=== PATIENT | male | born 1940 | race Caucasian/White ===

== ENCOUNTER 2017-10-25 09:31 | Day surgery (SDC) | payer OTHER ==
[~2017-10-25] VITALS: Ht 172.7 cm; Wt 79.5 kg
[~2017-10-25 09:31] MED LIST: AMLO10 PO; ATOR40TA PO; Adult Low Dose81 MG PO; CHLO25B PO; GLIP10 PO; LISI5 PO; Lopressor 25 mg25 MG PO; METFORMIN HCL500 MG PO; NITR.4SL SL; OMEPRAZOLE MAGN20 MG PO; VITAMIN C500 M1 PO; VITAMIN D22000 UNIT PO
[2017-10-25] MEDS ORDERED: Isosorbide Mono30 MG PO (13:33)
== END 2017-10-25 16:15 | disposition home or self-care (01) ==
LOC: MHTC 09:31
PROC: B2111ZZ Fluoroscopy of Multiple Coronary Arteries using Low Osmolar Contrast (ICD-10-PCS; principal; 2017-10-25)
DX: I25.119 Atherosclerotic heart disease of native coronary artery with unspecified angina pectoris (principal); E11.9 Type 2 diabetes mellitus without complications; E78.5 Hyperlipidemia, unspecified; I45.10 Unspecified right bundle-branch block; I11.9 Hypertensive heart disease without heart failure; I73.9 Peripheral vascular disease, unspecified; I65.21 Occlusion and stenosis of right carotid artery; K21.9 Gastro-esophageal reflux disease without esophagitis; Z87.891 Personal history of nicotine dependence; Z79.899 Other long term (current) drug therapy; Z79.82 Long term (current) use of aspirin; Z79.84 Long term (current) use of oral hypoglycemic drugs
CPT/HCPCS: 93454; 99152; C1769; C1894; J1644; J2250; J3010; J7030; Q9967

== ENCOUNTER 2022-02-08 05:42 | Observation (INO) | payer OTHER ==
[~2022-02-08] VITALS: Ht 172.7 cm; Wt 67.6 kg
[~2022-02-08 05:42] MED LIST changes: +ASCO500 PO; -Adult Low Dose81 MG PO; +Aspir 8181 MG PO; +Isosorbide Mono30 MG PO; -VITAMIN C500 M1 PO
[2022-02-08] MEDS ORDERED: RANO500T PO (06:33)
[2022-02-08] MEDS ORDERED: THERA-D2000 UNIT PO (06:33)
[2022-02-08] MEDS ORDERED: JARDIANCE25 MG PO (06:34)
[2022-02-08] MEDS ORDERED: LISI20 PO (06:35)
[2022-02-08] MEDS ORDERED: Vitamin B-12250 MCG PO (06:39)
[2022-02-08] MEDS ORDERED: FISH OIL 1,2001 EAC7 PO (06:40)
--- NOTE | 2022-02-08 10:39 | NUR ---
0915 BACK FROM [employer] PATIENT IS ALERT AND ORIENTED. HE IS LYING FLAT ON HIS BACK. ASSUMED CARE OF PATIENT FROM MID LEVEL [employer] STAFF. PATIENT IS BRADYCARDIC IN THE 50'S. HE HAS A SHEATH TO HIS RIGHT FEMORAL GROIN WITH PRESSURE FLUID ATTATCHED TO SITE. PATIENT HAS DOPPLER PULSES TO LEFT FOOT AND TO RIGHT PT BUT NOT TO PEDAL ON RIGHT, DR IS AWAIR THIS IS HIS BASELINE. FAMILY AT BEDSIDE. PATIENT HAS TKO TO RIGHT AC IV. LAB ORDER PUT IN FOR 1100 FOR PT. RIGHT GROIN IS SOFT TO TOUCH WITH NO ABNORMALITIES OR HEMATOMA'S. WILL CONTINUE TO MONITOR SITE AND VS AND PATIENT. AWAITING FURTHER ORDERS FROM DR LEON.
--- NOTE | 2022-02-08 14:10 | NUR ---
[id number]...SHEATH PULLED HELD 20 MIN OF MANUAL PRESSURE TO RIGHT GROIN ONCE SHEATH WAS PULLED OUT. NO HEMATOMA OR BRUISING PRESENT S/P. PATIENT TOLERATED IT WELL HOWEVER HIS BP DID COME UP A BIT WHILE PRESSURE BEING HELD BUT THE BP DID GO BACK TO BASELINE ONCE NO PAINFUL STIMULI PRESENT. PULSE CONTINUES TO STAY IN LOW 50'S, 1ST DEGREE AV BLOCK.
--- NOTE | 2022-02-08 18:09 | NUR ---
END OF SHIFT NOTE PATIENT HAS HAD GOOD DAY. HIS SHEATH WAS PULLED AT 1342 AND THE RIGHT GROIN SITE HAS BEEN STABLE ALL DAY. NO ACUTE CHANGES SINCE. HE IS SITTING IN BED AT 50 DEGREES AND ATE DINNER WITHOUT DIFFICULTY. HIS PULSE IS STILL IN THE 50'S BUT HE CHRISTINE CHEST PAIN. BP HAS BEEN WITHIN PARAMETERS. NO ACUTE CHANGES. WILL GIVE REPORT TO NEXT SHIFT TO RESUME CARE.
--- NOTE | 2022-02-08 19:15 | NUR ---
ASSUMPTION OF CARE PT RESTING IN BED WATCHING TV. HE IS ALERT AND ORIENTED, PLEASANT AND PARTICIPATES IN CONVERSATION. R GROIN SITE VISUALIZED WITH DAY SHIFT RN. SITE HAS TRANSPARENT DRESSING, NO BLEEDING, BRUISING OR TENDERNESS SURROUNDING SITE. HE DENIES CHEST PAIN/DISCOMFORT AND SOB. VSS. SEE SHIFT ASSESSMENT.
--- NOTE | 2022-02-09 00:06 | NUR ---
UPDATE PT WAKENS TO VERBAL STIMULI. HE REMAINS ALERT AND ORIENTED. HE DENIES CHEST PAIN/DISCOMFORT AND SOB. HR REMAINS IN 50S, 1ST DEGREE AV BLOCK. R GROIN SITE IS UNCHANGED. DRESSING IN PLACE, NO BLEEDING, NO HEMATOMA. VSS, PT DENIES NEEDS AT THIS TIME. CALL LIGHT WITHIN REACH.
[2022-02-09 03:43] LABS: Hematocrit 43.9 % (37.0-53.0); Hemoglobin 13.8 g/dL (13.5-17.5); Mean Corpuscular HGB 27.3 pg (26.0-34.0); Mean Corpuscular HGB Conc 31.4 g/dL (31.5-36.5); Mean Corpuscular Volume 87 fL (80-100); Mean Platelet Volume 11.6 fL (9.1-12.4); Platelet Count 219 K/mm3 (150-400); RDW Coefficient Variation 14.4 % (11.7-14.2); RDW Standard Deviation 45.1 fL (35.1-46.3); Red Blood Cell Count 5.05 M/mm3 (4.30-5.90); White Blood Cell Count 9.85 K/mm3 (4.00-11.30)
[2022-02-09 04:01] LABS: Bun/Creatinine Ratio 23.5 (12.0-20.0); Calcium, Blood 9.5 mg/dL (8.5-10.1); Creatinine, Blood 1.66 mg/dL (0.60-1.20); Potassium, Blood 5.2 mmol/L (3.5-5.5)
--- NOTE | 2022-02-09 05:46 | NUR ---
SHIFT SUMMARY PT SLEPT THROUGH MOST OF NIGHT. HE IS ALERT AND ORIENTED. HE HAS DENIED CHEST PAIN/PRESSURE, PALPITATIONS, AND SOB THROUGHOUT SHIFT. R GROIN SITE HAS TRANSPARENT DRESSING IN PLACE. DRESSING IS CLEAN, SURROUNDING TISSUE IS SOFT AND NONTENDER. VS HAVE REMAINED STABLE THROUGHOUT NIGHT. URINE OUTPUT 700ML. PT VERBALIZES LOOKING FORWARD TO GOING HOME. PLAN IN PLACE FOR DAUGHTER TO PICK PT UP UPON DISCHARGE. PT WANTS TO DISCUSS HOME MEDICATIONS WITH PROVIDER BEFORE DISCHARGE. WILL REPORT TO ONCOMING RN.
--- NOTE | 2022-02-09 07:15 | NUR ---
Assumed care of pt at 0700. Report recevied from Josie STANFORD. Pt A&O x 4. Answers questions. Follows commands. Verbalizes needs. Pleasant and cooperative with care. On room air. SR per monitor, rate 80. BP stable. Right groin site from angiogram. Color, sensastion, pulses, capillary refill equal BLE and BUE. Groin site dressed with tegaderm. Free of bruising, drainage, hematoma.
[2022-02-09] MEDS ORDERED: CLOP75 PO (09:23)
--- NOTE | 2022-02-09 10:36 | NUR ---
Pt discharged from unit at 1027. Escorted to entrance via wheelchair accompanied by PCT Soraida and daughter, Ginny. Education given to pt and daughter. Received education from this RN and from Dr Ellington. Provided with written prescription for plavix to ensure pt is medicated while he awaits prescription from [facility]. IV access discontinued.
== END 2022-02-09 10:36 | disposition home or self-care (01) ==
LOC: MHTC 05:42 → ICUW 08:44 → MHTC 11:40 → ICUW 02-09 10:36
PROVIDERS: ADMIT Internal Medicine Interventional Cardiology
DX: I25.110 Atherosclerotic heart disease of native coronary artery with unstable angina pectoris (principal); T82.897A Other specified complication of cardiac prosthetic devices, implants and grafts, initial encounter; I10 Essential (primary) hypertension; E11.9 Type 2 diabetes mellitus without complications; K21.9 Gastro-esophageal reflux disease without esophagitis; E78.5 Hyperlipidemia, unspecified; Z95.1 Presence of aortocoronary bypass graft; Z79.899 Other long term (current) drug therapy; Z20.822 Contact with and (suspected) exposure to COVID-19
CPT/HCPCS: 36415; 37236; 76937; 80048; 85027; 85347; 85730; 93455; 96372; 99152; 99153; A9270; C1725; C1761; C1769; C1874; C1876; C1887; C9600; G0378; J1644; J2250; J3010; J7030; J7040; Q9967

== ENCOUNTER 2022-08-08 15:40 | Emergency (ER) | payer OTHER ==
[~2022-08-08] VITALS: Ht 175.3 cm; Wt 83.9 kg
[~2022-08-08 15:40] MED LIST changes: +CLOP75 PO; +FISH OIL 1,2001 EAC7 PO; +JARDIANCE25 MG PO; +LISI20 PO; +RANO500T PO; +THERA-D2000 UNIT PO; +Vitamin B-12250 MCG PO
[2022-08-08 17:25] LABS: Calcium, Ionized (POC) 1.42 mmol/L (1.10-1.46); Chloride (POC) 108 mmol/L (98-108); Creatinine (POC) 1.8 mg/dL (0.8-1.3); Glucose (ISTAT POC) 260 mg/dL (70-99); Hemoglobin (POC) 14.3 g/dL (13.5-17.5); Potassium (POC) 5.4 mmol/L (3.5-5.5); Sodium (POC) 140 mmol/L (135-148); Total CO2 (POC) 24 mmol/L (21-32)
== END 2022-08-08 20:35 | disposition home or self-care (01) ==
LOC: ER 15:40
DX: I46.9 Cardiac arrest, cause unspecified (principal); Z79.899 Other long term (current) drug therapy; Z79.82 Long term (current) use of aspirin
CPT/HCPCS: 31500; 71045; 80047; 85014; 94002; J0171; J0282; J0330; J0461; J3010; J7030; J7060